=== PATIENT | male | born 1940 | race Caucasian/White ===

== ENCOUNTER 2022-01-24 11:48 | Emergency (ER) | payer MEDICARE, SELFPAY ==
[2022-01-24 11:49] VITALS: BP 120/87; PULSE 59; RESP 18; TEMP 36.4; O2SAT 94; BMI 30.7
--- NOTE | 2022-01-24 11:52 | RAD_ITS ---
STUDY: X-RAY - LEFT HAND REASON FOR EXAM: Male, 81 years old. DISLOCATED FINGER -- IN ED WAITING ROOM TECHNIQUE: 3 view(s) of the hand. COMPARISON: None. FINDINGS: Normal radiocarpal articulation. Normal distal radioulnar joint. Normal visualized carpal bones. Normal carpal articulations Normal carpometacarpal articulation of the thumb. Normal second through fifth carpometacarpal joints. Normal metacarpi. Normal metacarpophalangeal joint of the thumb. Normal interphalangeal joint of the thumb. Normal proximal and distal phalanges of the thumb. Normal metacarpophalangeal joints of the second through fifth fingers. Dorsal dislocation of the proximal interphalangeal joint of the third digit. Normal phalanges of the second through fifth fingers. Soft tissue swelling. RAD/Hand Min 3 Views IMPRESSION: Dorsal dislocation at the proximal interphalangeal joint of the third digit with overlying soft tissue swelling. Electronically Signed: Huey Wayne MD at 13:12 EDT ,
[2022-01-24 13:10] VITALS: BP 133/65; PULSE 55; RESP 18; O2SAT 94
--- NOTE | 2022-01-24 13:20 | EX.ED.UPPERE ---
HPI History of Present Illness Chief Complaint: Upper Extremity Injury Detail of Chief Complaint: Injury to left long finger Informant: patient Narrative Narrative: Patient presents to the emergency department with an injury to his left long finger that occurred about 3 hours ago. Patient tripped and fell injuring his finger. He is left-hand dominant. He denies any other injuries. [facility] Medical History (Updated 01/24/22 @ 13:[address] Camden Keys, DO) Heart block High cholesterol HTN (hypertension) Allergy/AdvReac Type Severity Reaction Status Date / Time No Known Allergies Allergy Verified 01/24/22 11:51 Social History Smoking Status: Never smoker ROS ROS ED Constitutional Constitutional ED: Reports systems reviewed and no addt'l complaints, except as documented; Denies body ache(s), change in weight or chills Eyes Eyes: Denies acute decrease in peripheral vision, change in vision, double vision or loss of vision ENT ENT ED: Reports none; Denies ear pain, lip swelling, loss taste/smell, neck pain, otalgia or sore throat Cardiovascular Cardiovascular: Reports none; Denies abdominal pain, chest pain with activity, leg edema, lightheadedness, palpitations, rapid heart rate or syncope Respiratory/Chest Respiratory/Chest: Reports none; Denies change in mental status, dry cough, dyspnea, hemoptysis, shortness of breath at rest or shortness of breath with exertion Gastrointestinal Gastrointestinal: Reports none; Denies abdominal pain, change in stool character, diarrhea, hematemesis, hematochezia, melena, rectal bleeding or vomiting Genitourinary Genitourinary ED: Reports none; Denies abdominal discomfort, anuria, dysuria, genital pain or polyuria Musculoskeletal Musculoskeletal: Reports none and other Details: Injury to left long finger ; Denies arthralgias, back pain, difficulty walking, extremity pain, muscle weakness or myalgias Integumentary Reports none; Denies abscess or rash Neurologic Neurologic: Reports none; Denies abnormal gait, confusion, focal weakness, frequent falls, headache(s), loss of vision, numbness, paresthesias, radicular pain, vertigo or weakness Psychiatric Psychiatric: Reports systems reviewed and no addt'l complaints, except as documented and none; Denies behavioral changes, confusion, difficulty concentrating, hallucinations, suicidal ideation, tactile hallucinations or visual hallucinations Endocrine Endocrinology: Denies none, cold intolerance, excessive sweating, fatigue or heat intolerance Hematologic/Lymphatic Hematologic/Lymphatic: Reports none; Denies anemia, easy bleeding or easy bruising Allergic/Immunologic Allergic/Immunologic ED: Denies as per HPI, none, lip swelling, mouth swelling, throat swelling, tongue swelling or hives EXAM Physical Exam Const Vital Signs: 01/24/22 11:49 01/24/22 13:10 Temperature 97.6 F L Temperature Source Temporal Pulse Rate 59 L 55 L Respiratory Rate 18 18 Blood Pressure 120/87 H 133/65 H Blood Pressure Mean 98 87 Pulse Ox 94 94 Oxygen Delivery Method Room Air Room Air Positive well nourished and well developed General Appearance ED: well developed and NAD HEENT Reports TM's clear and moist mucous membranes normocephalic and atraumatic; Negative for trauma or tenderness Tympanic Membrane ED: Yes TM's clear Eyes PERRL and EOMs intact bilaterally General Eye ED: Negative for pale conjunctiva or scleral icterus Neck no lymphadenopathy, supple and no JVD General: Negative for tenderness Chest Wall inspection of chest normal and palpation of chest normal Chest: Negative for tenderness Resp normal respiratory effort and clear to auscultation bilaterally Effort and Inspection: Negative for respiratory distress or pain with movement Auscultation: Negative for rhonchi, wheezes or diminished lung sounds Cardio regular rate, regular rhythm, S1 normal heart sound, S2 normal heart sound and no murmurs Peripheral Pulses: pulses 2+ throughout GI normal to inspection, nondistended, normoactive bowel sounds, soft to palpation, non-tender, non-distended and no masses Back/Spine no CVA tenderness and no thoracic nor lumbar tenderness Extremity Extremity Narrative: Evaluation of the left long finger reveals obvious deformity at the PIP joint. Patient unable to flex or extend the digit otherwise. Appearance is typical of a dislocated PIP joint. General Extremety ED: Negative for edema General Extremity: Negative for edema Neuro oriented x3, CN's II-XII intact bilaterally, no sensory deficits noted and gait normal Sensorium / Orientation: awake, alert, oriented to person, oriented to place and oriented to time Motor Exam: strength 5/5 throughout and strength abnormal Psych mental status grossly normal Skin no rashes or lesions noted and no wounds MDM MDM MDM Narrative Medical decision making narrative: Three-view x-rays of left hand obtained showed a PIP dislocation of the long finger without fracture. Radiology was in agreement. I offered the patient to perform a digital block and then reduced the finger versus attempting to reduce it without any anesthesia and he initially asked that I attempted without any anesthesia. I attempted to reduce the digit unsuccessfully however and patient was having too much discomfort. At this point he agreed to a digital block which was performed with lidocaine total of 8 cc. Good anesthesia was obtained. I was able to easily reduce the PIP joint at this time. Post reduction films were obtained and showed good reduction. Patient was placed in an aluminum splint. Patient does not anything for pain for home. They have a hand surgeon that they have seen before that they will follow-up with. Radiography Diagnostic Testing: Clinical Impression(s) from Imaging Studies Hand X-Ray 01/24/22 11:52 IMPRESSION: Dorsal dislocation at the proximal interphalangeal joint of the third digit with overlying soft tissue swelling. Electronically Signed: Huey Wayne MD at 13:12 EDT , Discharge Plan Triage Chief Complaint: Upper Extremity Injury ED Provider: Camden Keys Dx/Rx/DC Orders Clinical Impression: Closed dislocation of left middle finger Instructions: ED Finger Dislocation Primary Care Provider: Holden Langford Referrals: Holden Langford MD [Primary Care Provider] - Activity Restrictions/Additional Instructions: See your hand surgeon in 5 to 7 days for follow-up. Disposition Disposition: Home, Self Care
--- NOTE | 2022-01-24 13:25 | RAD_ITS ---
STUDY: X-RAY - LEFT HAND, ATTENTION THIRD FINGER REASON FOR EXAM: Male, 81 years old. Post reduction TECHNIQUE: 3 view(s) of the finger were obtained. COMPARISON: Comparison is made with prior examination done earlier in the day. FINDINGS: Normal metacarpal head. Normal metacarpophalangeal joint. Normal proximal phalanx. Normal middle phalanx. Normal distal phalanx. Satisfactory reduction of the proximal interphalangeal joint separation. Normal distal interphalangeal joint. Soft tissue swelling. RAD/Finger(s) Min 2 Views IMPRESSION: Status post fracture reduction. Persistent soft tissue swelling. Electronically Signed: Huey Wayne MD at 13:46 EDT ,
== END 2022-01-24 13:55 | disposition home or self-care (01) ==
LOC: ED 13:36
PROVIDERS: Emergency Provider Emergency Medicine; PCP Internal Medicine; Visit Provider Emergency Medicine
DX: S63.283A Dislocation of proximal interphalangeal joint of left middle finger, initial encounter (principal); W18.40XA Slipping, tripping and stumbling without falling, unspecified, initial encounter
CPT/HCPCS: 26770; 73130; 73140; 99283

== ENCOUNTER 2023-06-22 15:21 | Emergency (ER) | payer MEDICARE, SELFPAY ==
[2023-06-22 15:22] VITALS: BP 121/67; PULSE 53; RESP 16; TEMP 37; O2SAT 94; BMI 27.6
--- NOTE | 2023-06-22 15:34 | EKG12_ITS ---
Test Reason : syncope Blood Pressure : / mmHG Vent. Rate : 053 BPM Atrial Rate : 053 BPM P-R Int : 198 ms QRS Dur : 100 ms QT Int : 468 ms P-R-T Axes : 000 035 040 degrees QTc Int : 439 ms Sinus bradycardia Otherwise normal ECG Confirmed by ALDA YIN, HENRY ([id number]), subeditor YENNY GUIDO ([id number]) on 06/26/2023 7:46:09 AM Referred By: Josh Confirmed By:HENRY LIZAMA MD
--- NOTE | 2023-06-22 15:34 | EX.ED.DYSGE1 ---
HPI History of Present Illness Chief Complaint: Syncope Detail of Chief Complaint: Syncopal episode Informant: patient and spouse/S.O. Limited: dementia Onset/Context/Timing Onset: Hours Context: Sudden Onset Timing: Intermittent Quality: Sitting and passed out Location: [facility] Current Severity: Gone Maximum Severity: Severe Worsened by: Possibly lack of intake after breakfast Relieved by: Apparently nothing Associated Symptoms Associated Symptoms: Nausea, pallor, vomiting x1, and unresponsive Narrative Narrative: Patient is an 82-year-old male who lives with his spouse. He has dementia. He had breakfast according to the . He also has a remote history of DVT lower extremity due to trauma. He apparently was kicked by a cow. Presently he denies fever or chills. He also denies headache, visual, ocular auditory symptoms. He denies respiratory or cardiac symptoms. He presently reports mild nausea otherwise GI negative. He does not remember the color of his stool from this morning. He is not on an antithrombotic or anticoagulant. He denies leg pain, swelling or discoloration. History is limited the fact that he has dementia Prior similar symptoms: Yes Recent Illness/Hospitalization: No PFSH PFSH Medical History Heart block High cholesterol HTN (hypertension) Allergy/AdvReac Type Severity Reaction Status Date / Time No Known Allergies Allergy Verified 01/24/22 11:51 Social History (Updated 06/22/23 @ 15:[address] Vlad Olmos MD) household members: spouse Smoking Status: Never smoker ROS ROS ED Review of Systems ROS Unobtainable: due to mental status Constitutional Constitutional ED: Denies chills or fever(s) Eyes Eyes: Denies blurry vision or change in vision ENT ENT ED: Denies rhinorrhea or sore throat Cardiovascular Cardiovascular: Denies chest pain or palpitations Respiratory/Chest Respiratory/Chest: Denies cough, dyspnea or dyspnea on exertion Gastrointestinal Gastrointestinal: Reports nausea; Denies abdominal pain or vomiting Musculoskeletal Musculoskeletal: Denies arthralgias, back pain or myalgias Psychiatric Psychiatric: Denies anxiety or depression Endocrine Endocrinology: Denies cold intolerance or heat intolerance Hematologic/Lymphatic Hematologic/Lymphatic: Reports systems reviewed and no addt'l complaints, except as documented EXAM Physical Exam Const Vital Signs: 06/22/23 15:22 06/22/23 15:48 06/22/23 18:11 Temperature 98.6 F Temperature Source Oral Pulse Rate 53 L Pulse Rate [Lying] 51 L Pulse Rate [Sitting (for 1 minute prior to obtaining)] 56 L Pulse Rate [Standing (for 1 minute prior to obtaining)] 56 L Respiratory Rate 16 Blood Pressure 121/67 H 172/78 H Blood Pressure [Lying] 146/64 H Blood Pressure [Sitting (for 1 minute prior to obtaining)] 129/81 H Blood Pressure [Standing (for 1 minute prior to obtaining)] 100/44 L Blood Pressure Mean 85 109 Blood Pressure Mean [Lying] 91 Blood Pressure Mean [Sitting (for 1 minute prior to obtaining)] 97 Blood Pressure Mean [Standing (for 1 minute prior to obtaining)] 62 Pulse Ox 94 Oxygen Delivery Method Room Air Positive well nourished and well developed Constitutional Narrative: Is a pleasant elderly gentleman with impaired memory due to dementia. General Appearance ED: well developed and NAD; Negative for cyanotic, diaphoretic or pallor HEENT Reports dry mucous membranes HEENT Narrative: Head is atraumatic and normocephalic. Ears are normal. Nares are patent. Posterior pharynx is normal. Uvula is midline. There is no deviation tongue or protrusion. Mouth ED: Yes dry mucous membranes Mouth: dry mucous membranes Eyes PERRL and EOMs intact bilaterally General Eye ED: Negative for pale conjunctiva or scleral icterus Neck no lymphadenopathy, supple and no JVD Chest Wall inspection of chest normal and palpation of chest normal Resp normal respiratory effort and clear to auscultation bilaterally Cardio regular rhythm, S1 normal heart sound, S2 normal heart sound and no murmurs Rate: bradycardia GI normal to inspection, nondistended, normoactive bowel sounds, non-tender, non-distended and no masses; Negative for hepatosplenomegaly GI Narrative: No pulsatile mass or abdominal bruit appreciated. Palpation: Negative for mass Back/Spine no CVA tenderness Thoracic Spine / Upper Back: Negative for thoracic spinal tenderness Lumbar Spine / Lower Back: Negative for lumbar spinal tenderness Extremity normal to inspection Extremity Narrative: There is no asymmetry, swelling, discoloration, leg vein distention, palpable cords or tenderness along the distribution of the deep venous system. General Extremety ED: Negative for edema or tenderness General Extremity: Negative for edema Neuro No oriented x3, CN's II-XII intact bilaterally and no sensory deficits noted Sensorium / Orientation: alert and orientation impaired Motor Exam: strength 5/5 throughout Psych mental status grossly normal Skin no rashes or lesions noted, no wounds and skin turgor normal General Skin Exam: Negative for jaundice or pallor MDM MDM MDM Narrative Medical decision making narrative: This is a vasovagal syncopal episode however since patient has history of heart block obtain EKG to assess rhythm and determine if there is any ischemia. CBC was obtained to assess H&H. Orthostatic vital signs were performed. History & Record Review Additional record(s) reviewed:: Prior outpatient record and Prior ED visit Lab Data Labs: Laboratory Results - last 24 hr 06/22/23 15:23 WBC 9.6 RBC 4.99 Hgb 15.9 Hct 48.5 MCV 97.2 H MCH 31.9 MCHC 32.8 RDW Std Deviation 43.0 RDW Coeff of [place] 12.1 Plt Count 174 MPV 11.1 Immature Gran % (Auto) 0.500 Neut % (Auto) 82.3 H Lymph % (Auto) 11.5 L [place] % (Auto) 5.2 Eos % (Auto) 0.1 Baso % (Auto) 0.4 Absolute Neuts (auto) 7.9 H Absolute Lymphs (auto) 1.10 Nucleated RBC % 0 Sodium 142 Potassium 4.1 Chloride 105 Carbon Dioxide 32.0 Anion Gap 5 BUN 19 H Creatinine 1.27 Estim Creat Clear Calc 50.92 Est GFR (MDRD) Af Amer 70 Est GFR (MDRD) Non-Af 58 L BUN/Creatinine Ratio 15.0 Glucose 85 Calcium 9.1 Rhythm Strip Rhythm Strip: Sinus Rhythm Rate: 55 Ectopy: PVC(s) (Occasional) EKG Initial EKG: Attestation: I personally reviewed and interpreted this EKG as follows: Interpretation: Sinus Bradycardia (Rate is 55. [place] interval is 198 ms. QRS duration 100 ms. QT duration 468 ms. [place] is normal. Other than the bradycardia the EKG is normal.) Treatment and Re-Evaluation :: Me at 1601 that patient's orthostatic vital signs were markedly positive and he is symptomatic. 2 L of normal saline was ordered. He has no history of congestive heart failure. Feels markedly better is able to stand up after his 2 L bolus. He be discharged to home. Discharge Plan Triage Chief Complaint: Syncope ED Provider: Olmos,Vlad Dx/Rx/DC Orders Clinical Impression: Orthostatic hypotension, Dementia, Syncope and collapse Instructions: ED Hypotension, Orthostatic Primary Care Provider: Holden Langford Referrals: Holden Langford MD [Primary Care Provider] - As Needed Disposition Disposition: Home, Self Care
[2023-06-22 15:48] VITALS: BP 100/44; BP 129/81; BP 146/64; PULSE 51; PULSE 56
[2023-06-22 16:00] LABS: Anion Gap 5 (5-15); BUN 19 mg/dL (7-18); Calcium,Total 9.1 mg/dL (8.5-10.1); Chloride 105 mmol/L (98-107); Creatinine, Serum 1.27 mg/dL (0.70-1.30); EST Glomerular Filtration Rate 58 mL/min (>60); Est Glom Filt Rate - Afr Amer 70 mL/min (>60); Estimated Creatinine Clearance 50.92 ml/min; Glucose 85 mg/dL (74-106); Potassium 4.1 mmol/L (3.5-5.1); Sodium Level 142 mmol/L (136-145)
[2023-06-22] MEDS: 0.9% Normal Saline (1000mL) 1,000 ML 1000 ML IV ×2 (16:07→17:11)
[2023-06-22 16:09] LABS: Absolute Neutrophil Count 7.9 X10^3/uL (2.0-7.7); Basophil# 0.04 X10^3/uL; Basophil% 0.4 % (0-1); Eosinophil# 0.01 X10^3/uL; Eosinophils% 0.1 % (0-5); Hematocrit 48.5 % (40-54); Hemoglobin 15.9 g/dL (13.0-16.5); Lymphocyte % 11.5 % (19-41); Mean Corp Hgb Conc 32.8 g/dL (32-36); Mean Corpuscular Hgb 31.9 pg (27.0-32.0); Mean Corpuscular Volume 97.2 fL (80-94); Mean Platelet Vol. 11.1 fl (6.2-12.0); Monocyte% 5.2 % (0-10); NRBC Flagged by Analyzer 0 % (0-5); Neutrophil # 7.85 X10^3/uL (2.7-7.7); Neutrophil % 82.3 % (47-70); Platelet Count 174 K/mm3 (150-450); RBC Distribution Width CV 12.1 % (11.6-14.6); Red Blood Count 4.99 M/mm3 (4.6-6.2); White Blood Count 9.6 K/mm3 (4.4-11.0)
[2023-06-22 18:11] VITALS: BP 172/78
== END 2023-06-22 19:10 | disposition home or self-care (01) ==
PROVIDERS: Emergency Provider Emergency Medicine; PCP Internal Medicine; Visit Provider Emergency Medicine
DX: I95.1 Orthostatic hypotension (principal); F03.90 Unspecified dementia, unspecified severity, without behavioral disturbance, psychotic disturbance, mood disturbance, and anxiety; I10 Essential (primary) hypertension; E78.00 Pure hypercholesterolemia, unspecified
CPT/HCPCS: 80048; 85025; 93005; 96360; 96361; 99285; J7030; A4216